=== PATIENT | male | born 1990 | race Hispanic/Latino ===

== ENCOUNTER 2025-07-12 14:46 | Emergency (ER) | payer OTHER, SELFPAY ==
[2025-07-12 15:25] LABS: #Basophils 0.1 thou/uL (0.0-0.2); #Eosinophils 0.1 thou/uL (0.0-0.7); #Lymphocytes 2.2 thou/uL (1.20-3.40); #Monocytes 0.4 thou/uL (0.11-0.59); #Neutrophils 4.7 thou/uL (1.40-6.50); %Basophils 1.3 % (0.0-1.0); %Eosinophils 1.2 % (0.0-10.0); %Lymphocytes 29.1 % (21.0-51.0); %Monocytes 4.8 % (0.0-10.0); %Neutrophils 63.6 % (42.0-75.0); Hematocrit 50.7 % (42.0-52.0); Hemoglobin 15.9 g/dL (14.0-18.0); Mean Corpuscular Hemoglobin 27.7 pg (27.0-31.0); Mean Corpuscular Volume 88.5 fl (78.0-98.0); Platelet Count 287 10x3/uL (130-400); Red Blood Cell (RBC) Count 5.74 mill/uL (4.70-6.10); White Blood Cell (WBC) Count 7.4 10x3/uL (4.8-10.8)
[2025-07-12 15:43] LABS: ALT (SGPT) 54 U/L (Less than 45); AST (SGOT) 37 U/L (11-34); Albumin 4.4 g/dL (3.1-4.5); Alkaline Phosphatase 89 U/L (40-110); Anion Gap 14 mmol/L (10-20); BUN (Urea Nitrogen) 9 mg/dL (8.9-20.6); Bilirubin, Total 0.5 mg/dL (0.3-1.2); Calc. Creatinine Clearance 0 mL/min (70-130); Calcium 9.5 mg/dL (7.8-10.44); Carbon Dioxide 27 mmol/L (22-29); Chloride 103 mmol/L (98-107); Globulin 3.8 g/dL (2.4-3.5); Glucose 97 mg/dL (70-105); Lipase 31 U/L (8-78); Potassium 3.4 mmol/L (3.5-5.1); Sodium 141 mmol/L (136-145); Troponin I Less than 0.010 ng/mL (< 0.028)
[2025-07-12 16:18] LABS: Magnesium 2.2 mg/dL (1.6-2.6)
[2025-07-12] MEDS ORDERED: Aspirin Chewable 81 MG TAB ONE (17:00)
[2025-07-12 17:49] LABS: Troponin I Less than 0.010 ng/mL (< 0.028)
== END 2025-07-12 18:14 | disposition home or self-care (01) ==
LOC: MADERS 14:46
DX: R07.89 Other chest pain (principal); E87.6 Hypokalemia; R74.01 Elevation of levels of liver transaminase levels; Z75.8 Other problems related to medical facilities and other health care
CPT/HCPCS: 36415; 71046; 80053; 83690; 83735; 84443; 84484; 85025; 93005; 94760